=== PATIENT | male | born 1995 | race African-American/Black ===

== ENCOUNTER 2016-06-26 09:59 | Inpatient (IN) ==
--- NOTE | 2016-06-26 11:24 | Emergency Department Note ---
Arrival - Arrival Chief Complaint: Abscess Stated Complaint: large knot on pubic area ED Nursing Triage Note: Abscess to right groin area Mode of Arrival: Ambulatory Limitations: No Limitations Source: Patient, RN Notes Reviewed Time Seen by Provider: 06/26/16 10:31 - History of Present Illness HPI Narrative: 20-year-old black male presents to ED with chief complaint of abscess to right groin 2 days. States that he shaved his hair in the area, this produced an ingrown hair, which he pulled out and then the abscess formed. Denies fever, complaints of general malaise. Previous medical history significant for migraine. Denies heart or kidney problems. No blood thinner. No PCP. Allergies/Adverse Reactions: Allergies Allergy/AdvReac Type Severity Reaction Status Date / Time phenytoin [From Dilantin] Allergy Unknown/Unable Verified 04/02/16 03:27 to obtain Home Medications: Home Medications Medication Instructions Recorded Confirmed Type No Known Home Medications [No 04/28/16 06/26/16 History Known Home Medications] Review of System - Review of System 12 point system: reviewed and no additional remarkable complaints except as stated - Review of System Skin: Present: as per HPI Medical,Surgical,& Family Hx - Medical History Neurology: History of: Migraine - Social History Smoking Status: Current every day smoker Frequency of Alcohol Use: None Type of Drug Use: None Exam Physical Examination: Exam - General General appearance: alert, in no apparent distress - Head Head exam: Present: atraumatic, normocephalic - Eye Eye exam: Present: normal appearance, PERRL, EOMI - ENT ENT exam: Present: normal exam, normal oropharynx, mucous membranes moist - Neck Neck exam: Present: normal inspection, full ROM - Chest Chest inspection: Present: normal inspection, symmetric chest wall rise - Respiratory Respiratory exam: Present: normal lung sounds bilaterally. Absent: rales, rhonchi, wheezes - Cardiovascular Cardiovascular exam: Present: regular rate, normal rhythm, normal heart sounds - Extremities Exam Extremities exam: Present: normal inspection, full ROM - Neurological Exam Neurological exam: Present: alert, oriented X3 - Psychiatric Psychiatric exam: Present: normal affect, normal mood - Skin Skin exam: Present: warm, dry, intact. Approximately 10 cm abscess present in right suprapubic area, extending across the entire suprapubic area nonfluctuant. Vital Signs: Vital Signs Temperature 98.1 F 06/26/16 10:07 Pulse Rate 86 06/26/16 12:45 Respiratory Rate 20 06/26/16 12:45 Blood Pressure 135/79 06/26/16 12:45 O2 Sat by Pulse Oximetry 98 06/26/16 12:45 Course Course Narrative: 1340: Dr. Molina here to see patient. Will take to surgery for I&D today. - Consultations Time: 11:20 (Dr. Vallejo examined patient.) Time: 11:45 (Notified Dr. Molina of pt presence and status. Ordered US of area. He will see him later. ) Results - Labs CBC & BMP: 06/26/16 11:42 06/26/16 11:42 Lab Results: I have reviewed the patients labs - Diagnostic Findings Procedure: X-ray: report reviewed by me (There is a small focal fluid collection within the subcutaneous fat of the lower anterior abdominal wall to the right of midline. It is superficially located and could represent a sebaceous cyst or small abscess.) Disposition Clinical Impression: Abscess of suprapubic region Case discussed with: patient, patient's family Disposition: Still a Patient Condition: Stable Time of Disposition: 13:50
[2016-06-26 11:51] LABS: Basophils % 0.3 % (0.0-0.8); Eosinophils # 0.2 10*3/uL (0.0-0.87); Eosinophils % 1.1 % (0.00-10.9); Hematocrit 50.1 VOL% (42.0-52.0); Immature Granulocytes % 0.4 %; Immature Granulocytes Absolute 0.07 #; Lymphocytes # 1.9 10*3/uL (1.4-4.0); Lymphocytes % 12.3 % (21.2-54.2); Mean Corpuscular HGB Conc 33.9 GM/DL (32-36); Mean Corpuscular Hemoglobin 29 PG (27-34); Mean Corpuscular Volume 85.9 FL (87-102); Mean Platelet Volume 12.6 FL (9.6-12.0); Monocytes # 1.6 10*3/uL (0.11-0.8); Neutrophils # 11.9 10*3/uL (1.4-7.4); Neutrophils % 75.9 % (38.7-73.9); Platelet Count 220 T/CUMM (130-400); Red Blood Count 5.83 MC/CUMM (3.8-5.5); Red Cell Distribution Width 13.9 % (9.3-17.3); White Blood Count 15.7 T/CUMM (4-12)
[2016-06-26] MEDS ORDERED: ONDANSETRON 4 MG/2 ML VIAL ONE ×2 (12:10→18:37)
[2016-06-26] MEDS ORDERED: MORPHINE 2 MG/1 ML SYRINGE ONE ×2 (12:10→18:36)
[2016-06-26] MEDS ORDERED: ONDANSETRON 4 MG/2 ML VIAL IV STA ×2 (12:15→18:35)
[2016-06-26] MEDS ORDERED: MORPHINE 2 MG/1 ML SYRINGE IV STA ×2 (12:15→18:33)
[2016-06-26 12:20] LABS: Calcium 8.9 MG/DL (8.5-10.1); Osmolality,Calculated 274.5 MOS/KG (273-304); Potassium 4.1 MMOL/L (3.5-5.1)
--- NOTE | 2016-06-26 12:39 | Ultrasound Report ---
Referring Physician: Marisa Arambula NP Exam: US abdomen limited Date: June 26, 2016 Reason: Abscess suprapubic area Comparison: None Technique: Grayscale and color flow images of the lower abdominal wall to the right of midline were obtained. Ultrasound images were captured and stored. Findings: Within the subcutaneous fat of the lower anterior abdominal wall to the right of midline, there is a 0.4 x 0.4 x 0.3 cm focal area of fluid. It is superficially located and may represent a sebaceous cyst or small abscess. Impression: There is a small focal fluid collection within the subcutaneous fat of the lower anterior abdominal wall to the right of midline. It is superficially located and could represent a sebaceous cyst or small abscess. PROCEDURE INTERPRETED AT [facility] DEPARTMENT OF RADIOLOGY Final Report Signed by: Dr. Sejal De Jesus
[2016-06-26] MEDS ORDERED: ceFAZolin 2,000 MG in PREMIX 1 EACH IV ONE (13:39)
[2016-06-26] MEDS ORDERED: ACETAMINOPHEN 325 MG TABLET PO PRN (13:41)
[2016-06-26] MEDS ORDERED: ONDANSETRON 4 MG/2 ML VIAL IV PRN (13:41)
--- NOTE | 2016-06-26 13:47 | General Surg History&Physical ---
Assessment and Plan - Time spent with patient Time spent with patient: Less than 30 minutes (1) Abscess of suprapubic region Status: Acute Assessment and plan: Impression: Right suprapubic mass with tenderness secondary to a probable abscess 2. History of an unknown seizure disorder but is on no medication Plan: IV antibiotics and surgical debridement and drainage. Current Visit: Yes History of Present Illness Chief complaint: Mass in the right groin area over the last 2 days History of present illness: Mr. Arambula is a 20 year old male -[place] who essentially is pretty good health with a history of a seizure disorder in the past but is on normal medication at this time. Comes into the emergency room because a 2 day history of some progressive swelling in the right suprapubic area with increasing pain and discomfort. Comes to the emergency room where an ultrasound was performed in this area showing a fluid pocket suggesting abscess area with a marked indurated area on these right suprapubic region. Because of the tenderness and the ultrasound appearance we will go ahead and plan set him up for surgery and try to get this thing opened and drained. Home Medications Medication Instructions Recorded Confirmed Type No Known Home Medications [No 04/28/16 06/26/16 History Known Home Medications] Allergies Allergy/AdvReac Type Severity Reaction Status Date / Time phenytoin [From Dilantin] Allergy Unknown/Unable Verified 04/02/16 03:27 to obtain Medical,Surgical,& Family Hx - Medical History Neurology: History of: Migraine - Social History Smoking Status: Current every day smoker Frequency of Alcohol Use: None Type of Drug Use: None Exam - Constitutional Vitals: Period Temp Pulse Resp BP Sys/Munguia Pulse Ox Last 24 Hr 98.1 F 86-98 20-20 135-149/70-79 97-98 General appearance: mild distress - Head Head exam: Present: normal inspection - ENT ENT exam: Present: normal exam - Neck Neck exam: Present: normal inspection - Respiratory Respiratory exam: Present: clear to auscultation bilaterally, rales - Cardiovascular Cardiovascular exam: Present: RRR - GI/Abdominal GI/Abdominal exam: Present: hypoactive bowel sounds, tenderness (Within the area of the right suprapubic region or mass is present), soft - Extremities Exam Extremities exam: Present: normal inspection, normal capillary refill - Back Exam Back exam: Present: normal inspection - Neurological Exam Neurological exam: Present: alert, oriented X3, CN II-XII intact - Skin Skin exam: Present: normal color, warm, dry 12 point system: reviewed and no additional remarkable complaints except as stated Quality Measures - VTE Contraindication to Pharmacological VTE Prophylaxis: Clinical assessment deems Pt at low risk, no prophalaxis needed Results - Labs CBC & BMP: 06/26/16 11:42 06/26/16 11:42 Lab Results: I have reviewed the past 24 hour labs
--- NOTE | 2016-06-26 14:00 | XRay Report ---
Exam: XR chest 1V Date: 06/26/2016 1:38 PM Comparison: 04/02/2016 Indication: Respiratory preoperative evaluation Technique:[AP sitting chest Findings: The heart is borderline in size. No significant change in the appearance of the lungs or mediastinum. No acute osseous findings noted.] Impression: No acute cardiopulmonary pathology identified. PROCEDURE INTERPRETED AT [facility] DEPARTMENT OF RADIOLOGY Final Report Signed by: Dr. Maria Antonia Escobar
[2016-06-26] MEDS: LACTATED RINGERS 1,000 ML IV SCH ×2 (16:01→22:43)
--- NOTE | 2016-06-26 19:15 | Event Note ---
06/26/2016 1900 hrs. Due to an emergency in the OR at this time tying of the rooms and the possibility we would not get to him to extremity like ramakrishna I have elected to go ahead and put him off and do his surgery in the morning.
[2016-06-26] MEDS: CLINDAMYCIN INJ 600 MG in PREMIX 1 EACH IV SCH (21:42)
[2016-06-26] MEDS: HYDROmorphone 2 MG/1 ML VIAL IV PRN (21:43)
[2016-06-26] MEDS: DOCUSATE SODIUM 100 MG CAPSULE PO SCH (21:43)
[2016-06-27] MEDS: CLINDAMYCIN INJ 600 MG in PREMIX 1 EACH IV SCH ×4 (00:56→21:12)
[2016-06-27] MEDS: LACTATED RINGERS 1,000 ML IV SCH ×4 (00:58→21:12)
[2016-06-27] MEDS ORDERED: ceFAZolin 2,000 MG in PREMIX 1 EACH IV ONE (06:30)
[2016-06-27] MEDS ORDERED: BUPIVACAINE 0.25% 50 ML VIAL ONE (06:42)
[2016-06-27] MEDS ORDERED: PROPOFOL 200 MG/20 ML VIAL IV ONE (07:15)
[2016-06-27] MEDS ORDERED: ONDANSETRON 4 MG/2 ML VIAL ONE (07:15)
[2016-06-27] MEDS ORDERED: LIDOCAINE 1% 5 ML VIAL ONE (07:15)
--- NOTE | 2016-06-27 08:08 | Operative Note ---
Date of procedure: 06/27/16 Pre-op diagnosis: Abscess suprapubic area Post-op diagnosis: same Procedure: Operative note: Preoperative diagnosis: Suprapubic abscess. Postoperative diagnosis: Same Procedure: Excisional debridement and drainage of suprapubic abscess Surgeon Dr. Molina Anesthesia was general with local Brief history: 20-year-old -[place] male who comes in with a several day history of enlarging mass at the suprapubic area. He describes removing hair follicle at 1. before the onset of this swelling and pain. Ultrasound shows a fluid pocket and we felt need to get in and try to get this debrided and drained. Procedure: With patient prepped and draped in sterile fashion in the supine position timeout and antibiotics completed approaches area of the suprapubic area. There is an indurated mass area that measures 12 x 7.5 cm in size. I infiltrated around with a local anesthetic we made an incision on top of this indurated mass. We down to the skin subtenons tissue entered a cavity of purulent material we cultured aerobically and anaerobically. I then opened up a little bit wider with the knife and the scissors. And then begin to debride the necrotic fatty tissue and all the necrotic infected tissue that we could find in the area. This carried down to the fascia we went through Angela's fascia but we went down to the level of the suprapubic fascia also. At this point we debrided medially until we could tell that we were clear of any further infected fatty tissue at this point in time. We used electrocauterization controlling additional bleeding. Washed irrigated with saline solution. We checked things and did not find any additional areas of infected tissue. Once we finished we now have a post debridement wound at 6 x 1.5 x 3 cm in size. Dressings were applied. Estimated blood loss 15 cc. Sponge count correct 2 Drains none Complications none Condition stable satisfactory Anesthesia: GETA, local (0.25% Marcaine with epinephrine mixed [id number] 1% Xylocaine plain) Surgeon / Physician: Magno Molina Estimated blood loss: other (15 cc) Specimens: other (Culture swabs and tissue for cultures) Condition: stable Disposition: floor Results - Labs CBC & BMP: 06/26/16 11:42 06/26/16 11:42 Discharge Plan - Discharge Medications No Action No Known Home Medications [No Known Home Medications] - Follow Up or Referral - Forms/Instructions
[2016-06-27] MEDS ORDERED: MIDAZOLAM 2 MG/2 ML VIAL ONE (08:16)
[2016-06-27] MEDS ORDERED: fentaNYL 100 MCG/2 ML VIAL ONE (08:16)
[2016-06-27] MEDS ORDERED: SEVOFLURANE 1 UNIT/15 MINUTE INH ONE (08:16)
[2016-06-27] MEDS ORDERED: ACETAMINOPHEN 1,000 MG/100 ML VIAL IV ONE (08:17)
[2016-06-27] MEDS ORDERED: PANTOPRAZOLE 40 MG VIAL IV SCH (09:00)
--- NOTE | 2016-06-27 09:58 | Anesthesia Post-Op ---
Anesthesia Post OP - Post Ansesthetic Evaluation Patient seen in post op: Yes Resp: within normal limits CV: within normal limits Mental: within normal limits Temp: within normal limits [id number]: within normal limits Nausea and Vomiting: within normal limits Pain: within normal limits
[2016-06-27] MEDS: KETOROLAC 15 MG/1 ML VIAL IV SCH ×3 (10:35→21:13)
[2016-06-27] MEDS: DOCUSATE SODIUM 100 MG CAPSULE PO SCH ×2 (10:36→21:09)
[2016-06-27] MEDS: PANTOPRAZOLE 40 MG TABLET PO SCH (10:36)
[2016-06-27] MEDS: SODIUM HYPOCHLORITE 0.25% IRRIG 473 ML BOTTLE TOP SCH (10:37)
[2016-06-27] MEDS: ceFAZolin 2,000 MG in PREMIX 1 EACH IV SCH ×2 (15:09→21:17)
[2016-06-27] MEDS: HYDROmorphone 2 MG/1 ML VIAL IV PRN (18:54)
[2016-06-28] MEDS: CLINDAMYCIN INJ 600 MG in PREMIX 1 EACH IV SCH ×4 (02:10→20:34)
[2016-06-28] MEDS: KETOROLAC 15 MG/1 ML VIAL IV SCH ×4 (02:12→20:35)
[2016-06-28] MEDS: LACTATED RINGERS 1,000 ML IV SCH ×4 (05:06→20:40)
[2016-06-28 06:37] LABS: Basophils % 0.3 % (0.0-0.8); Eosinophils # 0.4 10*3/uL (0.0-0.87); Eosinophils % 2.6 % (0.00-10.9); Hematocrit 42.9 VOL% (42.0-52.0); Hemoglobin 14.6 GM/DL (14.0-18.0); Immature Granulocytes % 0.5 %; Immature Granulocytes Absolute 0.07 #; Lymphocytes # 2.1 10*3/uL (1.4-4.0); Lymphocytes % 15.8 % (21.2-54.2); Mean Corpuscular Hemoglobin 29 PG (27-34); Mean Platelet Volume 11.6 FL (9.6-12.0); Monocytes # 1.3 10*3/uL (0.11-0.8); Neutrophils # 9.4 10*3/uL (1.4-7.4); Neutrophils % 70.8 % (38.7-73.9); Platelet Count 176 T/CUMM (130-400); Red Blood Count 5.05 MC/CUMM (3.8-5.5); Red Cell Distribution Width 13.4 % (9.3-17.3); White Blood Count 13.2 T/CUMM (4-12)
[2016-06-28 07:13] LABS: Osmolality,Calculated 273.5 MOS/KG (273-304); Potassium 4.1 MMOL/L (3.5-5.1)
[2016-06-28] MEDS: PANTOPRAZOLE 40 MG TABLET PO SCH (10:22)
[2016-06-28] MEDS: DOCUSATE SODIUM 100 MG CAPSULE PO SCH ×2 (10:22→20:34)
--- NOTE | 2016-06-28 10:42 | General Surgery Progress Note ---
Assessment and Plan - Time spent with patient Time spent with patient: Less than 30 minutes (1) Abscess of suprapubic region Status: Acute Assessment and plan: Impression: Right suprapubic mass with tenderness secondary to a probable abscess 2. History of an unknown seizure disorder but is on no medication Plan: IV antibiotics and surgical debridement and drainage. 06/28/2016 Wound of the pubis is in good shape at this point time clean without any sign of of progressive infection. Wound care is starting today we will teach patient and family how to deal with it and hopefully can send him home tomorrow if they are comfortable in taking care of the wound Current Visit: Yes Subjective Patient reports: Present: no new complaints, still having pain, tolerating a regular diet, afebrile Exam - Constitutional Vitals: Period Temp Pulse Resp BP Sys/Munguia Pulse Ox Last 24 Hr 97.1 F-98.7 F 63-89 16-20 91-142/46-75 93-99 General appearance: mild distress - Head Head exam: Present: normal inspection - ENT ENT exam: Present: normal exam - Neck Neck exam: Present: normal inspection - Respiratory Respiratory exam: Present: rales - Cardiovascular Cardiovascular exam: Present: RRR - GI/Abdominal GI/Abdominal exam: Present: normal bowel sounds, soft, other (Wound to the suprapubic area is clean and dry without any unusual drainage seen at this time. ) - Extremities Exam Extremities exam: Present: normal inspection - Back Exam Back exam: Present: normal inspection - Neurological Exam Neurological exam: Present: alert, oriented X3, CN II-XII intact - Skin Skin exam: Present: normal color, warm, dry Results - Labs CBC & BMP: 06/28/16 06:29 06/28/16 06:29 Lab Results: I have reviewed the past 24 hour labs Quality Measures - VTE Contraindication to Pharmacological VTE Prophylaxis: Clinical assessment deems Pt at low risk, no prophalaxis needed
[2016-06-28] MEDS: SODIUM HYPOCHLORITE 0.25% IRRIG 473 ML BOTTLE TOP SCH (10:52)
[2016-06-29] MEDS: CLINDAMYCIN INJ 600 MG in PREMIX 1 EACH IV SCH ×2 (02:01→09:30)
[2016-06-29] MEDS: KETOROLAC 15 MG/1 ML VIAL IV SCH ×2 (02:02→09:29)
[2016-06-29] MEDS: LACTATED RINGERS 1,000 ML IV SCH ×2 (07:13→07:14)
[2016-06-29 08:10] VITALS: BP 135/72
[2016-06-29] MEDS: PANTOPRAZOLE 40 MG TABLET PO SCH (09:28)
[2016-06-29] MEDS: SODIUM HYPOCHLORITE 0.25% IRRIG 473 ML BOTTLE TOP SCH (11:21)
[2016-06-29] MEDS: DOCUSATE SODIUM 100 MG CAPSULE PO SCH (11:21)
--- NOTE | 2016-06-29 12:23 | Discharge Summary ---
Hospital Course - Hospital Course Hospital Course: Discharge summary: Discharge diagnosis: Abscess of the suprapubic area right lower quadrant portion of the abdomen Procedure: Excisional debridement and drainage of abscess suprapubic area. Brief summary: 20-year-old -[place] male who presents with an abscess in the right suprapubic area that extends slightly over the midline into the left. He was admitted and put on some IV antibiotics and then taken surgery next day at which time we encountered a large multi-pocket of the abscess in the suprapubic area. We were able to get it open debrided and cleaned up and drained at this time. He has had a good bit of discomfort with initially this got better over time. He has started wound care and family seems know how to deal with it at this time are comfortable with the wound care situation. The cultures cannot totally out at this time will probably keep send him home a couple of antibiotics to get this is clear and clean as possible. We need good wound care at least once a day if not twice a day and will attempt to try to get this wound is clean as possible get some healing occurring. Once we see some healing we may be of consider possibility of delayed closure. - Time spent with patient Time with patient DS: Less than 30 minutes Diagnosis - Discharge Diagnosis (1) Abscess of suprapubic region Status: Chronic Specialty Discharge - Follow Up or Referrals Follow up with: Magno Molina MD [Physician] - 2 Weeks - Speciality Discharge Instructions Surgery Instructions: 1. Must do wound care without fail at least once a day and twice a day if wounds or dressings get dirty or more. 2. Complete present antibiotics. Discharge Plan - Discharge Data Disposition: Disch To Home/Self Care Condition at Discharge: Stable Discharge Diet: advance to your usual diet Activity: increase activity as tolerated, no lifting Hygiene: may shower Weight Bearing at Discharge: full weight bearing Driving: no restrictions Contact your physician if you experience:: fever over 101, Redness or swelling, Nausea/Vomiting, Bleeding, pain uncontrolled by pain medications Wound / Dressing Care Instructions: Wound care daily or twice a day or as needed to the suprapubic wound. 1. May shower and wash with Hibiclens. 2. While in the shower irrigate the wound with 20 cc of half-strength Dakin solution. 3. Let the shower water washed with Dakin solution out while still in the shower. 4. Once out of the shower then lightly packed the wound with a Dakin's with 4 x 4 gauze. 5. Cover with 4 x 4's and an ABD pad - Discharge Medications New Clindamycin Cap [Cleocin Cap] 300 mg PO Q8HR #20 capsule HYDROcodone/ACETAMIN 7.5-325 [[place] 7.5-325] 1 tablet PO Q6H PRN #30 tablet PRN Reason: Pain Moderate (4-7) Sulfameth/Trimeth 800-160 Tab [Bactrim DS Tab] 1 tablet PO BID #20 tablet Acetaminophen Tab [Tylenol Tab] 650 mg PO Q6H PRN tablet PRN Reason: Pain Mild (1-3) And/Or Fever Sodium Hypochlorite 0.25% Irr [Dakins 1/2 Strength 0.25% Soln] 1 applic TOP DAILY #400 applic No Action No Known Home Medications [No Known Home Medications] - Follow Up or Referral - Forms/Instructions Exam - Constitutional Vitals: Period Temp Pulse Resp BP Sys/Munguia Pulse Ox Last 24 Hr 97.5 F-98.0 F 60-69 18-20 105-135/50-72 91-100 General appearance: normal weight - Head Head exam: Present: normal inspection - ENT ENT exam: Present: normal exam - Neck Neck exam: Present: normal inspection - Respiratory Respiratory exam: Present: clear to auscultation bilaterally - Cardiovascular Cardiovascular exam: Present: regular rate and rhythm - GI/Abdominal GI/Abdominal exam: Present: hypoactive bowel sounds, tenderness (Still about the area of the suprapubic region.), soft, other (Suprapubic wound is clean with no granulating tissue present but no drainage or other signs of recurring infection). Absent: distended - Extremities Exam Extremities exam: Present: normal inspection - Back Exam Back exam: Present: normal inspection - Neurological Exam Neurological exam: Present: alert, oriented X3, CN II-XII intact - Psychiatric Psychiatric exam: Present: normal affect, normal mood, anxious - Skin Skin exam: Present: normal color, warm, dry Discharge Results Procedures and tests throughout hospitalization: Pending Orders 06/26/16 11:53 Blood Culture Stat 06/27/16 Abscess Culture Routine Anaerobic Culture Routine Tissue (Biopsy) Culture and GS Routine Labs on day of discharge: Preliminary micro results at discharge 06/27/16 Unknown Abscess Culture - Preliminary Groin - Right Gram Positive Cocci 06/27/16 Unknown Tissue Culture - Preliminary Groin - Right Gram Positive Cocci 06/26/16 11:53 Blood Culture - Preliminary Blood No growth at 1 day 06/26/16 11:42 Blood Culture - Preliminary Blood No growth at 1 day DS: Provider Date of admission: 06/26/16 13:41 Primary care physician: . No PCP Attending physician on admission: Magno Molina MD Consults: 06/26/16 13:41 Consult to Anesthesiology [CONS] Routine Consulting Provider: Reason for Anesthesiology: Pre-op Clearance Consult Comment: History of seizure disorder for anesthesia for abscess 06/27/16 08:08 Consult to Wound Care - [place] [CONS] Routine Reason for Wound Care: Wound Care Management Consult Comment: Supra pubic wound -- teach patient care Discharging clinician: Magno Molina MD Expected date of discharge: 06/29/16
== END 2016-06-29 12:00 | disposition home or self-care (01) | DRG 572 ==
LOC: N.ED 09:59 → N.EDINP 13:41 → N.5E 19:30
PROVIDERS: ADMIT Specialist; ATTEND Specialist